=== PATIENT | female | born 1940 | race Caucasian/White ===

== ENCOUNTER 2017-10-16 13:10 | Emergency (ER) | payer OTHER ==
[~2017-10-16] VITALS: Ht 162.6 cm; Wt 113.4 kg
[2017-10-16 14:48] VITALS: BP 185/89
== END 2017-10-16 17:32 | disposition home or self-care (01) ==
LOC: ER 13:19
DX: S59.901A Unspecified injury of right elbow, initial encounter (principal); S40.012A Contusion of left shoulder, initial encounter; S05.11XA Contusion of eyeball and orbital tissues, right eye, initial encounter; M62.830 Muscle spasm of back; I10 Essential (primary) hypertension; W19.XXXA Unspecified fall, initial encounter; Y93.89 Activity, other specified; Y92.009 Unspecified place in unspecified non-institutional (private) residence as the place of occurrence of the external cause; Y99.8 Other external cause status
CPT/HCPCS: 70450; 70486; 72125; 73030; 73080